=== PATIENT | male | born 1965 | race Caucasian/White ===

== ENCOUNTER 2018-04-12 14:17 | Inpatient (IN) | payer OTHER ==
[2018-04-12] MEDS ORDERED: SODIUM CHLORIDE 0.9% 1,000 ML IV ONE (15:11)
[2018-04-12] MEDS ORDERED: ACETAMINOPHEN TAB 325 MG TAB PO STA (15:11)
--- NOTE | 2018-04-12 15:11 | ED ---
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 Patient recently diagnosed with gallbladder metastasis February with gallbladder removal. Patient was on oral as well as infused chemotherapy in December. Pt is scheduled Thursday for chemotherapy treatment however is unable to begin if febrile. Patient presents today for cough, and fever. Pt states that he had a fever for 1 days last week however it subsided. He states that it returned today. Pt states he has had a cry cough for the past 1.5 weeks. Pt states that he had hemoptysis today. Pt denies chest pain, but states when he coughs hard he does experience a discomfort in his chest. Pt states he was told after an ER visit at [facility] on the 25 of March that he had a small right sided pleural effusion. Pt denies parathesias, leg swelling, nausea, vomiting, stool changes, constipation. Pt admits to continued RUQ pain that radiated toward right shoulder blade since his gallbladder removal, as well as SOB since cough has started, pt states he feels "wheezy" and has history of asthma. Pt spoke with his [employer] at [facility] in regards to his cough, fever and hemoptysis and was told to present to the emergency department this afternoon. Upon arrival pt HR elevated at 101, febrile at 101.3F. Remaining VS within acceptable limits. Pt does not appear in respiratory distress. - Related Data Home Medications Medication Instructions Recorded Confirmed Albuterol Inhaler [Ventolin Hfa 2 puff INHALATION RT-Q6H PRN 04/12/18 04/12/18 Inhaler] Albuterol Nebulized [Ventolin 2.5 mg INHALATION RT-TID 04/12/18 04/12/18 Nebulized] Cyclobenzaprine [Flexeril] 5 mg PO TID PRN 04/12/18 04/12/18 Fluticasone/Salmeterol [Advair 1 puff INHALATION RT-DAILY 04/12/18 04/12/18 500-50 Diskus] Multivitamins, Thera [Multivitamin 1 tab PO DAILY 04/12/18 04/12/18 (formulary)] Omeprazole [PriLOSEC] 20 mg PO DAILY 04/12/18 04/12/18 amLODIPine [Norvasc] 10 mg PO DAILY 04/12/18 04/12/18 oxyCODONE HCL [OxyIR] 5 mg PO Q4H PRN 04/12/18 04/12/18 Allergies Allergy/AdvReac Type Severity Reaction Status Date / Time egg Allergy Wheezing Verified 04/12/18 15:35 Review of Systems ROS Statement: Those systems with pertinent positive or pertinent negative responses have been documented in the HPI. ROS Other: All systems not noted in ROS Statement are negative. Past Medical History Past Medical History: Asthma History of Any Multi-Drug Resistant Organisms: None Reported Additional Past Surgical History / Comment(s): Stage 4 colon cancer, colon resection, 2 liver resections, 2 chemo embolizations, Past Psychological History: No Psychological Hx Reported Smoking Status: Never smoker Past Alcohol Use History: None Reported Past Drug Use History: None Reported - Past Family History Father Family Medical History: Coronary Artery Disease (CAD), Diabetes Mellitus Mother Family Medical History: Cancer, Diabetes Mellitus General Exam - General Exam Comments Initial Comments: General: The patient is awake and alert, in no distress. Eye: +3 mm pupils are equal, round and reactive to light, extra-ocular movements are intact. No nystagmus. There is normal conjunctiva bilaterally. No signs of icterus. Ears, nose, mouth and throat: There are moist mucous membranes and no oral lesions. Neck: The neck is supple, there is no tenderness or JVD. Non anterior cervical lymphadenopathy. Cardiovascular: There is a regular rate and rhythm. No murmur, rub or gallop is appreciated. Respiratory: Respirations are non-labored, breath sounds are equal. No stridor , rales, or rhonchi. Mild expiratory wheeze. Diminished right lower lung sounds upon auscultation. Dry cough on exam. Gastrointestinal: Soft, non-distended, abdomen without masses. Mild liver enlargement palpable. Tenderness of the RUQ upon palpation. No mid/lower abdominal pain. No LUQ pain to palpation. There is no rebound or guarding present. No CVA tenderness. Bowel sounds are unremarkable. Musculoskeletal: Normal ROM, no tenderness. Strength 5/5. Sensation intact. DP pulses equal bilaterally 2+. Neurological: A&O x 3. CN II-XII intact, There are no obvious motor or sensory deficits. Coordination appears grossly intact. Speech is normal. Skin: Skin is warm and dry and no rashes or lesions are noted. No LE edema. (- ) Homans. No jaundice. Psychiatric: Cooperative, appropriate mood & affect, normal judgment. Limitations: no limitations Course Vital Signs 04/12/18 04/12/18 04/12/18 14:21 16:49 20:15 Temperature 101.1 F H 97.6 F Pulse Rate 101 H 100 83 Respiratory 20 18 Rate Blood Pressure 147/87 135/94 O2 Sat by Pulse 96 96 Oximetry 04/12/18 21:00 Temperature Pulse Rate 78 Respiratory 18 Rate Blood Pressure 133/90 O2 Sat by Pulse 97 Oximetry - Reevaluation(s) Reevaluation #1: 04/12/18 18:00 Improvement in wheeze. Pt states work of breathing improved, "feeling better". Medical Decision Making - Medical Decision Making 52-year-old male past nuchal history of stage IV colon cancer with both liver, gallbladder metastasis presenting for evaluation of fever, cough. Patient febrile and tachycardic upon arrival. Patient admitted to shortness of breath and hemoptysis concerning for possible cardiopulmonary embolism given history of cancer. D-dimer positive. CTA negative for pulmonary embolism. Pt does have upper respiratory symptoms, including congestion and cough with PMH of asthma-wheeze on exam given Duoneb/steriods. Influenza (-). Patient admitted to cardiac chest pain, history was not concerning for acute coronary syndrome, however given age with SOB initial troponin obtained, (-). CXR revealed right pleural effusion and pulmomary nodules, these were redemonstrated on CTA. US of bile ducts obtained given persistent RUQ discomfort s/p cholecystectomy. Negative for any acute findings, no choledocholithiasis. Patient has known liver cancer metastasis.laboratory studies revealed hyponatremia and hypochloremia. Remainder unremarkable.CBC with differential revealed a left shift. At this time given history/immunocompromised, concern for bacteremia risk. Pt started on broad spectrum antibiotics. Pt did not want transfer to [facility] where established care is. Pt admitted inpatient for IV abx and evaluation by heme onc. Pt agreeable with admission. Discussed findings with patient. Dr. Marino attending provider spoke with admitting provider Dr. Mauricio, no further orders at this time. Pt transferred to floor in stable condition. - Lab Data Result diagrams: 04/12/18 16:32 04/12/18 16:32 Lab Results 04/12/18 04/12/18 04/12/18 Range/Units 16:18 16:32 16:32 WBC 10.6 (3.8-10.6) k/uL RBC 4.49 (4.30-5.90) m/uL Hgb 11.9 L (13.0-17.5) gm/dL Hct 36.9 L (39.0-53.0) % MCV 82.0 (80.0-100.0) fL MCH 26.4 (25.0-35.0) pg MCHC 32.2 (31.0-37.0) g/dL RDW 18.2 H (11.5-15.5) % Plt Count 278 (150-450) k/uL Neutrophils % 75 % Lymphocytes % 11 % Monocytes % 9 % Eosinophils % 3 % Basophils % 1 % Neutrophils # 8.0 H (1.3-7.7) k/uL Lymphocytes # 1.1 (1.0-4.8) k/uL Monocytes # 0.9 (0-1.0) k/uL Eosinophils # 0.3 (0-0.7) k/uL Basophils # 0.1 (0-0.2) k/uL Manual Slide Review Performed Hypochromasia Slight Anisocytosis Slight D-Dimer 3.99 H (<0.60) mg/L FEU Sodium (137-145) mmol/L Potassium (3.5-5.1) mmol/L Chloride (98-107) mmol/L Carbon Dioxide (22-30) mmol/L Anion Gap mmol/L BUN (9-20) mg/dL Creatinine (0.66-1.25) mg/dL Est GFR (CKD-EPI)AfAm (>60 ml/min/1.73 sqM) Est GFR (CKD-EPI)NonAf (>60 ml/min/1.73 sqM) Glucose (74-99) mg/dL Plasma Lactic Acid David (0.7-2.0) mmol/L Calcium (8.4-10.2) mg/dL Total Bilirubin (0.2-1.3) mg/dL AST (17-59) U/L ALT (21-72) U/L Alkaline Phosphatase (38-126) U/L Troponin I (0.000-0.034) ng/mL Total Protein (6.3-8.2) g/dL Albumin (3.5-5.0) g/dL Amylase (30-110) U/L Lipase (23-300) U/L Urine Color Yellow Urine Appearance Clear (Clear) Urine pH 5.5 (5.0-8.0) Ur Specific [place] 1.020 (1.001-1.035) Urine Protein Trace H (Negative) Urine Glucose (UA) Negative (Negative) Urine Ketones Negative (Negative) Urine Blood Negative (Negative) Urine Nitrite Negative (Negative) Urine Bilirubin Negative (Negative) Urine Urobilinogen <2.0 (<2.0) mg/dL Ur Leukocyte Esterase Negative (Negative) Influenza Type A RNA (Not Detectd) Influenza Type B (PCR) (Not Detectd) 04/12/18 04/12/18 04/12/18 Range/Units 16:32 16:32 16:32 WBC (3.8-10.6) k/uL RBC (4.30-5.90) m/uL Hgb (13.0-17.5) gm/dL Hct (39.0-53.0) % MCV (80.0-100.0) fL MCH (25.0-35.0) pg MCHC (31.0-37.0) g/dL RDW (11.5-15.5) % Plt Count (150-450) k/uL Neutrophils % % Lymphocytes % % Monocytes % % Eosinophils % % Basophils % % Neutrophils # (1.3-7.7) k/uL Lymphocytes # (1.0-4.8) k/uL Monocytes # (0-1.0) k/uL Eosinophils # (0-0.7) k/uL Basophils # (0-0.2) k/uL Manual Slide Review Hypochromasia Anisocytosis D-Dimer (<0.60) mg/L FEU Sodium 130 L (137-145) mmol/L Potassium 4.5 (3.5-5.1) mmol/L Chloride 97 L (98-107) mmol/L Carbon Dioxide 23 (22-30) mmol/L Anion Gap 10 mmol/L BUN 17 (9-20) mg/dL Creatinine 0.89 (0.66-1.25) mg/dL Est GFR (CKD-EPI)AfAm >90 (>60 ml/min/1.73 sqM) Est GFR (CKD-EPI)NonAf >90 (>60 ml/min/1.73 sqM) Glucose 144 H (74-99) mg/dL Plasma Lactic Acid David 1.8 (0.7-2.0) mmol/L Calcium 8.7 (8.4-10.2) mg/dL Total Bilirubin 1.9 H (0.2-1.3) mg/dL AST 148 H (17-59) U/L ALT 60 (21-72) U/L Alkaline Phosphatase 168 H (38-126) U/L Troponin I (0.000-0.034) ng/mL Total Protein 7.0 (6.3-8.2) g/dL Albumin 3.6 (3.5-5.0) g/dL Amylase <30 L (30-110) U/L Lipase 29 (23-300) U/L Urine Color Urine Appearance (Clear) Urine pH (5.0-8.0) Ur Specific [place] (1.001-1.035) Urine Protein (Negative) Urine Glucose (UA) (Negative) Urine Ketones (Negative) Urine Blood (Negative) Urine Nitrite (Negative) Urine Bilirubin (Negative) Urine Urobilinogen (<2.0) mg/dL Ur Leukocyte Esterase (Negative) Influenza Type A RNA Not Detected (Not Detectd) Influenza Type B (PCR) Not Detected (Not Detectd) 04/12/18 Range/Units 17:00 WBC (3.8-10.6) k/uL RBC (4.30-5.90) m/uL Hgb (13.0-17.5) gm/dL Hct (39.0-53.0) % MCV (80.0-100.0) fL MCH (25.0-35.0) pg MCHC (31.0-37.0) g/dL RDW (11.5-15.5) % Plt Count (150-450) k/uL Neutrophils % % Lymphocytes % % Monocytes % % Eosinophils % % Basophils % % Neutrophils # (1.3-7.7) k/uL Lymphocytes # (1.0-4.8) k/uL Monocytes # (0-1.0) k/uL Eosinophils # (0-0.7) k/uL Basophils # (0-0.2) k/uL Manual Slide Review Hypochromasia Anisocytosis D-Dimer (<0.60) mg/L FEU Sodium (137-145) mmol/L Potassium (3.5-5.1) mmol/L Chloride (98-107) mmol/L Carbon Dioxide (22-30) mmol/L Anion Gap mmol/L BUN (9-20) mg/dL Creatinine (0.66-1.25) mg/dL Est GFR (CKD-EPI)AfAm (>60 ml/min/1.73 sqM) Est GFR (CKD-EPI)NonAf (>60 ml/min/1.73 sqM) Glucose (74-99) mg/dL Plasma Lactic Acid David (0.7-2.0) mmol/L Calcium (8.4-10.2) mg/dL Total Bilirubin (0.2-1.3) mg/dL AST (17-59) U/L ALT (21-72) U/L Alkaline Phosphatase (38-126) U/L Troponin I <0.012 (0.000-0.034) ng/mL Total Protein (6.3-8.2) g/dL Albumin (3.5-5.0) g/dL Amylase (30-110) U/L Lipase (23-300) U/L Urine Color Urine Appearance (Clear) Urine pH (5.0-8.0) Ur Specific [place] (1.001-1.035) Urine Protein (Negative) Urine Glucose (UA) (Negative) Urine Ketones (Negative) Urine Blood (Negative) Urine Nitrite (Negative) Urine Bilirubin (Negative) Urine Urobilinogen (<2.0) mg/dL Ur Leukocyte Esterase (Negative) Influenza Type A RNA (Not Detectd) Influenza Type B (PCR) (Not Detectd) - EKG Data EKG Comments: A 12-lead EKG was performed and shows the following: Rate is 92bpm, and rhythm is normal sinus. There are normal QRS complexes and normal R-wave progression. ST segments have no elevation or depression, and IL segments appear normal. Ventricular rate 92 bpm, IL interval 144 ms, QRS duration 96 mild seconds, QT/ QTC 382/472 ms. This appears to be normal sinus no ST elevation or depression. No previous EKG to compare. EKG was evaluated by myself as well as attending provider Dr. Marino. Disposition Clinical Impression: Fever, Immunocompromised, Pleural effusion, History of known metastasis to liver, Colorectal cancer, stage IV Disposition: ADMITTED IP TO THIS HOSP Condition: Stable Is patient prescribed a controlled substance at d/c from ED?: No Time of Disposition: 20:29
[2018-04-12] MEDS ORDERED: IBUPROFEN 800 MG TAB PO STA (15:31)
[2018-04-12] MEDS ORDERED: ALBUTEROL NEBULIZED 2.5 MG/3 ML INHALATION STA (15:36)
[2018-04-12] MEDS ORDERED: methylPREDNISolone SOD SUCCI 125 MG/2 ML VIAL IV STA (15:42)
[2018-04-12] MEDS ORDERED: MORPHINE SULFATE 4 MG/ML SYRINGE IVP STA (15:57)
--- NOTE | 2018-04-12 16:30 | US ---
EXAMINATION TYPE: US abdomen limited DATE OF EXAM: 04/12/2018 COMPARISON: NONE CLINICAL HISTORY: Choledocholithiasis r/o, pancreas. EXAM MEASUREMENTS: Liver Length: 14.5 cm Gallbladder Wall: Surgically absent CBD: 0.3 cm Right Kidney: 11.6 x 5.7x 5.3 cm Morbidly obese patient who had difficult not coughing and couldn't hold his breath, severe midline mercedes wel gas, study limited and technically difficult. Pancreas: Obscured by bowel gas Liver: right lobe not well visualized due to above factors, grossly heterogenous scattered echogenic areas seen in right lobe, right lobe echogenic compared to left, left lobe shows mass measuring 2.8 x 2.4 x 3.1cm Gallbladder: Surgically absent Evidence for sonographic Tadeo's sign: patient in immense pain in entire abdomen CBD: wnl, as seen Right Kidney: poor visualization, appears wnl Probable right pleural effusion. Pancreas is suboptimally seen on images saved secondary to shadowing from overlying bowel gas. Liver is heterogeneously hyperechoic making evaluation for focal masses jaeger boptimal. Technologist bernal oval fairly isoechoic area left hepatic lobe with rim hypoechoic appeara nce that is suspicious for focal solid mass. No intrahepatic ductal dilatation is seen. Gallbladder i s surgically absent. No gross hydronephrosis. IMPRESSION: Suboptimal evaluation of pancreas. No biliary dilatation noted. Marked heterogeneity of l iver could reflect diffuse fatty infiltration or underlying hepatocellular disease. Possible solid le ahsan left hepatic lobe, target sign appearance, advise further investigation with contrast-enhanced m ultiphasic CT or MRI to exclude metastatic disease.
[2018-04-12 16:50] LABS: Anisocytosis Slight; Basophils # (A) 0.1 k/uL (0-0.2); Basophils % (A) 1 %; Eosinophils # (A) 0.3 k/uL (0-0.7); Eosinophils % (A) 3 %; HCT 36.9 % (39.0-53.0); HGB 11.9 gm/dL (13.0-17.5); Hypochromasia Slight; Lymphocytes # (A) 1.1 k/uL (1.0-4.8); Lymphocytes % (A) 11 %; MCH 26.4 pg (25.0-35.0); MCHC 32.2 g/dL (31.0-37.0); Mean Platelet Volume 7.2; Monocytes # (A) 0.9 k/uL (0-1.0); Monocytes % (A) 9 %; Neutrophils % (A) 75 %; Platelet Count 278 k/uL (150-450); RBC 4.49 m/uL (4.30-5.90); RDW 18.2 % (11.5-15.5); WBC 10.6 k/uL (3.8-10.6)
[2018-04-12 17:00] LABS: ALT 60 U/L (21-72); AST 148 U/L (17-59); Albumin 3.6 g/dL (3.5-5.0); Alkaline Phosphatase 168 U/L (38-126); Amylase <30 U/L (30-110); Anion Gap 10 mmol/L; Blood Urea Nitrogen 17 mg/dL (9-20); Calcium 8.7 mg/dL (8.4-10.2); Carbon Dioxide 23 mmol/L (22-30); Chloride 97 mmol/L (98-107); Glucose 144 mg/dL (74-99); Lipase 29 U/L (23-300); Potassium 4.5 mmol/L (3.5-5.1); Sodium 130 mmol/L (137-145); Total Bilirubin 1.9 mg/dL (0.2-1.3)
--- NOTE | 2018-04-12 18:07 | XR ---
EXAMINATION: XR chest 2V DATE AND TIME: 04/12/2018 5:17 PM CLINICAL INDICATION: PHH; Pain TECHNIQUE: Departmental protocol COMPARISON: None FINDINGS: Right IJ catheter tip superimposed over the mid SVC. Prominently elevated right hemidiaphragm noted, with no inflation of the right lower lobe on this rad iograph gas presumably passive RLL atelectasis, but concurrent right hilar and right lower lobe proce ss could be evident if clinically suspected. There are scattered bands of bilateral perihilar opacity, and a left lateral mid lung zone rounded op acity. There is no evidence of pulmonary edema. The pleural spaces are negative. The cardiac silhouette appears top normal in size. The remainder of the mediastinal silhouette is unr emarkable as seen. The skeletal structures and soft tissues are negative for acute findings. IMPRESSION: Elevated right hemidiaphragm with right lower lobe airlessness and bilateral perihilar ra diographic findings.
[2018-04-12 18:24] LABS: Appearance,Urine Clear (Clear); Bilirubin,Urine Negative (Negative); Blood,Urine Negative (Negative); Color,Urine Yellow; Glucose,Urine (UA) Negative (Negative); Ketones,Urine Negative (Negative); Leukocyte Esterase,Urine Negative (Negative); Nitrite,Urine Negative (Negative); PH, Urine 5.5 (5.0-8.0); Protein,Urine Trace (Negative); Urobilinogen,Urine <2.0 mg/dL (<2.0)
--- NOTE | 2018-04-12 19:45 | CT ---
EXAMINATION TYPE: CT angio chest with contrast and with 3-D reconstruction renderings DATE OF EXAM: 04/12/2018 6:44 PM COMPARISON: None HISTORY: RADHA, sinus infection; history of cancer CT DLP: 673.4 mGycm Automated exposure control for dose reduction was used. CONTRAST: CTA scan of the thorax is performed with IV Contrast, patient injected with 100 mL of Isovue 370, pul monary embolism protocol. 3-D reconstructions. FINDINGS: AIRWAYS: Unremarkable. PLEURAL SPACES: Small right pleural effusion is noted. LUNGS: Associated partial dependent atelectasis of the right lower lobe. There are multifocal ill-def ined zones of consolidation throughout the right and left lung parenchyma, measuring 1 cm diameter to 2.5 cm diameter. These number approximately 8 on the right and 6 on the left. MEDIASTINUM: There is unsatisfactory enhancement of the pulmonary artery and its branches, without ev idence of pulmonary embolism. However, sensitivity at least moderately limited for segmental pulmonar y emboli on this study. There is no pericardial effusion. No cardiomegaly. Aorta is unremarkable. There is prominent and diffuse bilateral hilar adenopathy. There is subcarinal and right pericardioph renic adenopathy, but no other mediastinal adenopathy. OTHER: Unfortunately, the IV contrast bolus and subsequent enhancement of the subdiaphragmatic visce ra is very limited for soft tissue resolution. There are prominent multifocal liver abnormalities. Th ere is prominent multifocal upper abdominal adenopathy in the chilango hepatis and portacaval and celiac positions. And there is prominent upper abdominal adenopathy. The visualized upper abdominal anatomy is negative for pneumoperitoneum or peritoneal fluid collection. No evidence of bowel obstruction, u rinary tract obstruction, or biliary-pancreatic ductal obstruction. IMPRESSION: NO DEFINITE PULMONARY EMBOLISM, ALTHOUGH MODERATELY LIMITED STUDY. SMALL RIGHT PLEURAL EFFUSION, BILATERAL PULMONARY NODULES, AND BILATERAL HILAR ADENOPATHY WITH SUBCAR INAL, AND PERICARDIOPHRENIC ADENOPATHY. MULTIFOCAL LIVER LESIONS AND MULTIFOCAL ABDOMINAL ADENOPATHY.
[2018-04-12] MEDS ORDERED: CEFEPIME 2 GM in SODIUM CHLORIDE 0.9% 50 ML IVPB STA (19:59)
[2018-04-12] MEDS ORDERED: VANCOMYCIN IV PER PHARMACY 1 EACH MISC MISCELLANE PRN (20:00)
[2018-04-12] MEDS ORDERED: VANCOMYCIN 1,750 MG in SODIUM CHLORIDE 0.9% 500 ML 500 ML IVPB STA (20:04)
[2018-04-12] MEDS ORDERED: IBUPROFEN 400 MG TAB PO PRN (20:34)
[2018-04-12] MEDS ORDERED: NALOXONE 0.4 MG/ML 1 ML VIAL IV PRN (20:34)
[2018-04-12] MEDS ORDERED: MORPHINE SULFATE 4 MG/ML SYRINGE IV PRN (20:34)
[2018-04-12] MEDS ORDERED: SODIUM CHLORIDE 0.9% 1,000 ML IV SCH (20:45)
[2018-04-13] MEDS ORDERED: ALBUTEROL NEBULIZED 2.5 MG/3 ML INHALATION SCH (01:20)
[2018-04-13] MEDS ORDERED: SYMBICORT 160-4.5 MCG INHALER INHALATION STA (01:23)
[2018-04-13] MEDS: ALBUTEROL NEBULIZED 2.5 MG/3 ML INHALATION PRN ×2 (01:24→09:14)
[2018-04-13 05:40] VITALS: BP 130/78; RESP 16; TEMP 97.7
[2018-04-13] MEDS ORDERED: VANCOMYCIN 1,750 MG in SODIUM CHLORIDE 0.9% 500 ML 500 ML IVPB SCH (06:00)
[2018-04-13] MEDS ORDERED: SYMBICORT 160-4.5 MCG INHALER INHALATION SCH (08:00)
[2018-04-13 09:29] VITALS: PULSE 98
--- NOTE | 2018-04-13 23:29 | P.CONS ---
History of Present Illness - Reason for Consult Consult date: 04/13/18 Metastatic colon cancer. Fever - History of Present Illness The patient is a 52-year-old white male, with an extensive past oncologic history. The patient was initially diagnosed with colon cancer in 2013 and was treated at [facility], with subsequent transfer of care to the [facility]. The patient has known metastatic disease involving the liver and possibly some upper abdominal lymph nodes. He has had multiple lines of treatment including infusional chemotherapy and immunotherapy, as well as a partial liver resection. Most recently he was on treatment with Xeloda and Avastin. Systemic therapy was stopped in 01/07 to give him a treatment break. The patient subsequently developed right-sided abdominal pain, and underwent a cholecystectomy on 03/08/18. He states that the gallbladder was involved with malignancy, but is not sure if this was a new primary or metastasis from colon cancer. Due to the surgery, resumption of systemic treatment was placed on hold and he recovered adequately. The patient states that he was seen earlier this month at the [facility], with a plan to resume treatment later in 04/10. He states that he did have scans done there, as he was still having some right upper abdominal, as well as chest discomfort. He is not sure if his chest was imaged. He states that he was told that there was some concern for possible infection in the lung. He subsequently developed some wheezing, as well as cough which is mostly dry, about 1-1/2 weeks prior to this presentation. He was seen by his primary care physician, and prescribed a steroid pack as well as an antibiotic. He states that he felt better, but after completion of the antibiotic course, his symptoms recurred. He also developed a fever due to which she came into the emergency room. In the ER temperature was 101+. He was also complaining of some shortness of breath associated with a cough. He was therefore admitted for further management. The patient had a CTA as well as an abdominal ultrasound. This was negative for PE, but showed nodular areas of consolidation in both lungs measuring 1-2.5 cm, and numbering 6-8 on each side. In addition there was evidence of liver metastasis, significant mediastinal adenopathy, as well as enlarged lymph nodes in the chilango hepatis, portacaval and celiac areas. He was therefore admitted for further management, and consult placed Review of Systems Constitutional: Reports fatigue, Reports fever, Reports weight loss (Deliberate) Eyes: denies blurred vision, denies pain Ears: deny: decreased hearing, ear discharge, earache, tinnitus Ears, nose, mouth and throat: Denies headache, Denies sore throat Cardiovascular: Reports dyspnea on exertion Respiratory: Reports cough, Reports dyspnea Gastrointestinal: Reports as per HPI, Reports abdominal pain, Denies diarrhea, Denies nausea, Denies vomiting Genitourinary: Reports as per HPI Musculoskeletal: Denies myalgias Integumentary: Denies pruritus, Denies rash Neurological: Denies numbness, Denies weakness Psychiatric: Denies anxiety, Denies depression Endocrine: Reports fatigue, Reports weight change Hematologic/Lymphatic: Reports as per HPI Past Medical History Past Medical History: Asthma History of Any Multi-Drug Resistant Organisms: None Reported Past Surgical History: Cholecystectomy Additional Past Surgical History / Comment(s): Stage 4 colon cancer, colon resection, 2 liver resections, 2 chemo embolizations, Past Anesthesia/Blood Transfusion Reactions: No Reported Reaction Past Psychological History: No Psychological Hx Reported Smoking Status: Never smoker Past Alcohol Use History: None Reported Past Drug Use History: None Reported - Past Family History Father Family Medical History: Coronary Artery Disease (CAD), Diabetes Mellitus Mother Family Medical History: Cancer, Diabetes Mellitus Medications and Allergies Home Medications Medication Instructions Recorded Confirmed Type Albuterol Inhaler [Ventolin Hfa 2 puff INHALATION RT-Q6H PRN 04/12/18 04/12/18 History Inhaler] Albuterol Nebulized [Ventolin 2.5 mg INHALATION RT-TID 04/12/18 04/12/18 History Nebulized] Cyclobenzaprine [Flexeril] 5 mg PO TID PRN 04/12/18 04/12/18 History Fluticasone/Salmeterol [Advair 1 puff INHALATION RT-DAILY 04/12/18 04/12/18 History 500-50 Diskus] Multivitamins, Thera [Multivitamin 1 tab PO DAILY 04/12/18 04/12/18 History (formulary)] Omeprazole [PriLOSEC] 20 mg PO DAILY 04/12/18 04/12/18 History amLODIPine [Norvasc] 10 mg PO DAILY 04/12/18 04/12/18 History oxyCODONE HCL [OxyIR] 5 mg PO Q4H PRN 04/12/18 04/12/18 History Allergies Allergy/AdvReac Type Severity Reaction Status Date / Time egg Allergy Wheezing Verified 04/12/18 15:35 Physical Exam Vitals: Vital Signs Temp Pulse Pulse Resp BP BP Pulse Ox 04/13/18 09:17 102 H 98 04/13/18 05:39 97.7 F 74 16 130/78 97 04/13/18 01:34 90 04/13/18 01:25 88 04/13/18 00:00 18 04/12/18 22:17 98.2 F 88 16 145/83 94 L 04/12/18 21:00 78 18 133/90 97 04/12/18 20:15 97.6 F 83 18 135/94 96 04/12/18 16:49 100 04/12/18 14:21 101.1 F H 101 H 20 147/87 96 Intake and Output 04/12/18 04/13/18 04/13/18 22:59 06:59 14:59 Other: # Voids 2 - Constitutional General appearance: no acute distress - EENT Eyes: EOMI, PERRLA ENT: hearing grossly normal, normal oropharynx - Neck Neck: no lymphadenopathy - Respiratory Respiratory: bilateral: CTA - Cardiovascular Rhythm: regular Heart sounds: normal: S1, S2 - Gastrointestinal General gastrointestinal: normal bowel sounds, soft - Integumentary Integumentary: normal - Neurologic Neurologic: CNII-XII intact - Musculoskeletal Musculoskeletal: strength equal bilaterally - Psychiatric Psychiatric: A&O x's 3, appropriate affect Results CBC & Chem 7: 04/12/18 16:32 04/12/18 16:32 Labs: Abnormal Lab Results - Last 24 Hours (Table) 04/12/18 04/12/18 04/12/18 Range/Units 16:18 16:32 16:32 Hgb 11.9 L (13.0-17.5) gm/dL Hct 36.9 L (39.0-53.0) % RDW 18.2 H (11.5-15.5) % Neutrophils # 8.0 H (1.3-7.7) k/uL D-Dimer 3.99 H (<0.60) mg/L FEU Sodium (137-145) mmol/L Chloride (98-107) mmol/L Glucose (74-99) mg/dL Total Bilirubin (0.2-1.3) mg/dL AST (17-59) U/L Alkaline Phosphatase (38-126) U/L Amylase (30-110) U/L Urine Protein Trace H (Negative) 04/12/18 Range/Units 16:32 Hgb (13.0-17.5) gm/dL Hct (39.0-53.0) % RDW (11.5-15.5) % Neutrophils # (1.3-7.7) k/uL D-Dimer (<0.60) mg/L FEU Sodium 130 L (137-145) mmol/L Chloride 97 L (98-107) mmol/L Glucose 144 H (74-99) mg/dL Total Bilirubin 1.9 H (0.2-1.3) mg/dL AST 148 H (17-59) U/L Alkaline Phosphatase 168 H (38-126) U/L Amylase <30 L (30-110) U/L Urine Protein (Negative) CT scan - chest: report reviewed US - abdomen: report reviewed Assessment and Plan (1) Fever Narrative/Plan: The source is not definite. He has no localizing signs other than his cough, which could be due to metastatic disease. He has been afebrile since admission. Await cultures to be finalised, which are negative so far. Antibiotics per IM. Tumor fever is also a possibility. Focal obstructive due to lung mets is another Status: Acute Code(s): R50.9 - FEVER, UNSPECIFIED SNOMED Code(s): 481643881 (2) Colorectal cancer, stage IV Narrative/Plan: Records , including any recent imaging from [facility] are not available. Diagnostic and therapeutic circumstances are thus as described by the pt. Based on his information, the current imaging seems to indicate progression of disease. The results and implications were discussed in detail with him. He will therefore need to resume systemic therapy. Details of prior regimens are not known, but per the pt he does have systemic options available. He was thus advised to resume f/u at the [facility]. He has an appt timorrow, and is keen to make it to that. He was advised to take a CD of his CT scans done here with him. Defer to IM to decide if he is Ok for discharge on PO antibiotics Status: Acute Code(s): C19 - MALIGNANT NEOPLASM OF RECTOSIGMOID JUNCTION SNOMED Code(s): 37748753 Plan: Case d/w IM in detail. From our standpoint, he can be discharged, whenever felt to be appropriate by them
--- NOTE | 2018-04-14 07:53 | DS ---
DISCHARGE SUMMARY HISTORY, PHYSICAL AND DISCHARGE SUMMARY: DATE OF ADMISSION: 04/12/2018 DATE LEFT AGAINST MEDICAL ADVICE: 04/13/2018 FINAL DIAGNOSES: 1. Colorectal cancer stage IV. 2. Fever. HOSPITAL COURSE: This patient was admitted yesterday evening and LEFT AGAINST MEDICAL ADVICE this morning. The patient was not seen by me. For more details refer to the ER notes. This is both a H and P and a discharge summary for this patient. MMODL / IJN: [id number] /
== END 2018-04-13 10:30 | disposition left against medical advice (07) | DRG 375 ==
LOC: EC 14:17 → 3NMEDONC 20:36
PROVIDERS: ADMIT Hospitalist; ATTEND Hospitalist
DX: C19 Malignant neoplasm of rectosigmoid junction (principal); C78.00 Secondary malignant neoplasm of unspecified lung; C78.7 Secondary malignant neoplasm of liver and intrahepatic bile duct; E87.1 Hypo-osmolality and hyponatremia; E87.8 Other disorders of electrolyte and fluid balance, not elsewhere classified; J45.909 Unspecified asthma, uncomplicated; Z79.899 Other long term (current) drug therapy; Z82.49 Family history of ischemic heart disease and other diseases of the circulatory system; Z83.3 Family history of diabetes mellitus; Z90.49 Acquired absence of other specified parts of digestive tract; Z79.891 Long term (current) use of opiate analgesic; Z91.012 Allergy to eggs; R50.9 Fever, unspecified
CPT/HCPCS: 36415; 71046; 71275; 76705; 80053; 81003; 82150; 83605; 83690; 84484; 85025; 85379; 87040; 87502; 93005; 94640; 94760; 96361; 96365; 96367; 96375; 99285